=== PATIENT | male | born 1975 | race Caucasian/White ===

== ENCOUNTER 2017-04-24 12:49 | Emergency (ER) | payer OTHER ==
[~2017-04-24] VITALS: Ht 172.7 cm; Wt 99.8 kg
[~2017-04-24 12:49] MED LIST: ANTIVERT25 MG PO; CELEXA20 MG PO; CYCLOBENZAPRINE10 MG PO; MOTRIN IB200 MG PO; NORCO 5-325 TA1 EACH PO; OMEPRAZOLE20 MG PO; ONDANSETRON ODT4 MG SL; PROMETHAZINE12.5 M1 PO; TRAZODONE HCL50 MG PO; ZOFRAN8 MG PO; zantac
[2017-04-24] MEDS ORDERED: BENADRYL25 MG PO (12:58)
[2017-04-24] MEDS ORDERED: OMEPRAZOLE20 M1 PO (12:59)
== END 2017-04-24 14:14 | disposition home or self-care (01) ==
LOC: ED 12:49
DX: R10.9 Unspecified abdominal pain (principal); R11.2 Nausea with vomiting, unspecified; Z90.49 Acquired absence of other specified parts of digestive tract; Z79.899 Other long term (current) drug therapy
CPT/HCPCS: 80053; 82150; 85025; 96361; 96374; 96375; 99283; J1885; J2405; J7030